=== PATIENT | female | born 1960 | race Two or more races ===

== ENCOUNTER 2017-04-03 16:11 | Emergency (ER) | payer OTHER ==
[~2017-04-03] VITALS: Ht 160 cm; Wt 73.0 kg
[~2017-04-03 16:11] MED LIST: [UNRECOGNIZED DRUG - OTHER] OT; [UNRECOGNIZED DRUG - OTHER] OT
== END 2017-04-03 19:33 | disposition home or self-care (01) ==
LOC: ER 16:11
DX: J11.1 Influenza due to unidentified influenza virus with other respiratory manifestations (principal); B34.9 Viral infection, unspecified

== ENCOUNTER 2018-05-24 16:55 | Emergency (ER) | payer OTHER ==
[~2018-05-24] VITALS: Ht 160 cm; Wt 72.6 kg
== END 2018-05-24 20:05 | disposition home or self-care (01) ==
LOC: ER 16:55
DX: R07.89 Other chest pain (principal)

== ENCOUNTER 2019-01-02 20:28 | Emergency (ER) | payer OTHER ==
[~2019-01-02] VITALS: Ht 160 cm; Wt 76.2 kg
[2019-01-02] MEDS ORDERED: KETO10TA2 PO (21:05)
[2019-01-02] MEDS ORDERED: TUSNEL LIQUID178 ML PO (21:05)
== END 2019-01-02 21:22 | disposition home or self-care (01) ==
LOC: ER 20:28
DX: M94.0 Chondrocostal junction syndrome [Tietze] (principal)

== ENCOUNTER 2019-01-20 14:41 | Emergency (ER) | payer OTHER ==
[~2019-01-20] VITALS: Ht 160 cm; Wt 72.6 kg
[~2019-01-20 14:41] MED LIST changes: +KETO10TA2 PO; +TUSNEL LIQUID178 ML PO
== END 2019-01-20 20:13 | disposition home or self-care (01) ==
LOC: ER 14:41
DX: M94.0 Chondrocostal junction syndrome [Tietze] (principal); R07.89 Other chest pain

== ENCOUNTER 2019-07-09 16:15 | Emergency (ER) | payer OTHER ==
[~2019-07-09] VITALS: Ht 160 cm; Wt 72.6 kg
== END 2019-07-09 19:25 | disposition home or self-care (01) ==
LOC: ER 16:15
DX: S76.012A Strain of muscle, fascia and tendon of left hip, initial encounter (principal); M79.652 Pain in left thigh; W18.39XA Other fall on same level, initial encounter; Y93.89 Activity, other specified; Y92.018 Other place in single-family (private) house as the place of occurrence of the external cause; Y99.8 Other external cause status

== ENCOUNTER 2019-08-11 19:20 | Emergency (ER) | payer OTHER ==
[~2019-08-11] VITALS: Ht 160 cm; Wt 72.6 kg
== END 2019-08-11 21:31 | disposition home or self-care (01) ==
LOC: ER 19:20
DX: J03.80 Acute tonsillitis due to other specified organisms (principal)

== ENCOUNTER → 2022-03-16 | Emergency (ER) | payer OTHER ==
[~2022-03-16] VITALS: Ht 160 cm; Wt 83.5 kg
== END | disposition home or self-care (01) ==
LOC: ER
DX: M77.11 Lateral epicondylitis, right elbow (principal)

== ENCOUNTER 2022-07-14 13:22 | Emergency (ER) | payer OTHER ==
[~2022-07-14] VITALS: Ht 160 cm; Wt 81.6 kg
== END 2022-07-14 16:41 | disposition home or self-care (01) ==
LOC: ER 13:22
DX: B34.9 Viral infection, unspecified (principal); Z20.822 Contact with and (suspected) exposure to COVID-19

== ENCOUNTER 2022-08-08 12:44 | Emergency (ER) | payer OTHER ==
[~2022-08-08] VITALS: Ht 160 cm; Wt 81.6 kg
[2022-08-08] MEDS ORDERED: SINGULAIR10 MG PO (13:32)
[2022-08-08] MEDS ORDERED: MUCINEX600 MG (13:32)
== END 2022-08-08 15:41 | disposition home or self-care (01) ==
LOC: ER 12:44
DX: J03.90 Acute tonsillitis, unspecified (principal); R05.9 Cough, unspecified

== ENCOUNTER 2024-08-04 15:47 | Emergency (ER) | payer OTHER ==
[~2024-08-04] VITALS: Ht 160 cm; Wt 81.2 kg
[~2024-08-04 15:47] MED LIST changes: +MUCINEX600 MG; +SINGULAIR10 MG PO
[2024-08-04] MEDS ORDERED: CETIRIZINE HCL 5 MG/5 ML ML PO ONE (18:30)
[2024-08-04] MEDS ORDERED: GUAIFENESIN/DEXTROMETHORPHAN 100MG/10ML BLIST.PACK PO ONE ×2 (18:30→18:53)
[2024-08-04] MEDS ORDERED: CETIRIZINE HCL 5MG/5ML BLIST.PACK PO ONE (18:54)
[2024-08-04 19:26] LABS: EOS # 0.72 (0.04-0.54); EOS % 6.4 % (0.7-7.0); HEMATOCRIT 39.9 % (34.1-44.9); HEMOGLOBIN 13.4 g/dL (11.2-15.7); LYMPH # 3.31 (1.18-3.74); LYMPH % 29.3 % (19.3-53.1); MEAN CORPUSCULAR HEMOGLOBIN 30.6 pg (25.6-32.2); MONO # 1.09 (0.24-0.82); MONO % 9.6 % (4.7-12.5); NEUT # 6.03 (1.56-6.13); NEUT % 53.3 % (34.0-71.1); PLATELET COUNT 380 K/uL (163-369); RED BLOOD COUNT 4.38 M/uL (3.93-5.22); RED CELL DISTRIBUTION WIDTH 12.4 % (11.6-14.4)
[2024-08-04 19:48] LABS: INFLUENZA A AG NEGATIVE (NEGATIVE); INFLUENZA B AG NEGATIVE (NEGATIVE)
[2024-08-04 20:00] LABS: COVID-19 AG NEGATIVE (NEGATIVE)
[2024-08-04] MEDS ORDERED: GILTUSS COUGH-118 M1 PO (20:10)
[2024-08-04] MEDS ORDERED: ACETAMINOPHEN500 M1 PO (20:10)
== END 2024-08-04 20:57 | disposition home or self-care (01) ==
LOC: ER 15:47
PROVIDERS: Preventive Medicine Public Health & General Preventive Medicine
DX: B34.9 Viral infection, unspecified (principal); Z20.822 Contact with and (suspected) exposure to COVID-19